=== PATIENT | female | born 1945 | race Caucasian/White ===

== ENCOUNTER 2016-12-04 14:34 | Outpatient (CLI) | payer MEDICARE | END 2016-12-04 14:35 | disposition home or self-care (01) | LOC: CP 14:34 | PROVIDERS: ATTEND Internal Medicine Critical Care Medicine | DX: J44.9 Chronic obstructive pulmonary disease, unspecified (principal) | CPT/HCPCS: 94060; 94727; 94729 ==

== ENCOUNTER 2017-04-15 11:53 | Outpatient (CLI) | payer MEDICARE ==
[~2017-04-15 11:53] MED LIST: Iopamidol 370 76% 100 ML VIAL ONE
--- NOTE | 2017-04-15 14:31 | CT ---
CT OF ABDOMEN PERFORMED WITH AND WITHOUT CONTRAST ENHANCEMENT: History: Right renal mass follow up. Comparison: 10-09-16 FINDINGS: The lung bases are clear of any infiltrative process. The liver and spleen show no focal abnormalities. Gallbladder has been removed. There is extrahepatic ductal prominence which is felt to be on the basis of cholecystectomy. The pancreas shows no mass. A small hiatal hernia is seen. Right and left adrenal glands are normal in appearance. There is a stable appearance to an enhancing 2.2 cm right renal mass located in the posterior cortex of the mid pole of the right kidney. No left renal mass seen. CT Hounsfield unit numbers increase from 20 to 92 on the arterial phase portion of t his examination and decrease slightly to 70 on the post contrast images. There is no significant naveen aortic adenopathy. IMPRESSION: 1. Stable appearance to an enhancing right renal mass measuring approximately 2.2 cm. Continued follo w up is recommended. 2. Hiatal hernia. 3. Post op cholecystectomy. POS: [facility]
== END 2017-04-15 11:54 | disposition home or self-care (01) ==
LOC: CT 11:53
PROVIDERS: ATTEND Urology
DX: N28.89 Other specified disorders of kidney and ureter (principal); K44.9 Diaphragmatic hernia without obstruction or gangrene; Z90.49 Acquired absence of other specified parts of digestive tract
CPT/HCPCS: 74170